=== PATIENT | male | born 1955 | race Hispanic/Latino ===

== ENCOUNTER 2018-07-23 11:45 | Emergency (ER) | payer MEDICARE ==
--- NOTE | 2018-07-23 11:51 | ED PDOC ---
Arrival/HPI - General Time Seen by Provider: 07/23/18 11:47 Historian: Family EM Caveat: Acuity of Condition - Critical Care Critical Care Minutes: 75 minutes - History of Present Illness Narrative History of Present Illness (Text): 07/23/18 11:40 62 year old male, whose past medical history includes hypertension, presents to the emergency department accompanied by family for a code stroke. As per family, patient was last seen normal at 10:30AM. Patient withright -side facial droop, right-sided weakness, and aphagia Patient's baseline mental state is awake and alert. No other complaints this morning. Code Stroke was activated upon arrival. Limited history provided. HPI and ROS limited due to acuity of condition. PMD: Dr. Dinh 07/24/18 08:05 Time/Duration: 1 hour Past Medical History - Provider Review Nursing Documentation Reviewed: Yes Family/Social History - Physician Review Nursing Documentation Reviewed: Yes Family/Social History: No Known Family HX Allergies/Home Meds Allergies/Adverse Reactions: Allergies sulfabenzamide Allergy (Verified 07/23/18 11:50) URTICARIA Home Medications: Home Meds Medication Instructions Recorded Confirmed Ciprofloxacin [Cipro] 500 mg PO BID 07/23/18 07/23/18 RX: Losartan [Cozaar] 50 mg PO DAILY 07/23/18 07/23/18 RX: amLODIPine [Norvasc] 5 mg PO DAILY 07/23/18 07/23/18 RX: hydroCHLOROthiazide 25 mg PO DAILY 07/23/18 07/23/18 [Hydrodiuril] Umeclidinium Brm/Vilanterol Tr 1 puff NEB DAILY 07/23/18 07/23/18 [Anoro Ellipta 62.5-25 Mcg INH] Review of Systems - Physician Review All systems were reviewed & negative as marked: Yes - Review of Systems Systems not reviewed;Unavailable: Acuity of Condition Neurological: Speech Changes (dysarthric ), Facial Droop, Other (right-sided weakness) Physical Exam Vital Signs Reviewed: Yes Temperature: Afebrile Blood Pressure: Hypertensive Pulse: Regular Respiratory Rate: Normal Appearance: Positive for: Well-Appearing, Non-Toxic, Comfortable Pain Distress: None - Systems Exam Head: Present: Atraumatic, Normocephalic Pupils: Present: PERRL Extroacular Muscles: Present: EOMI Conjunctiva: Present: Normal Mouth: Present: Moist Mucous Membranes Neck: Present: Normal Range of Motion Respiratory/Chest: Present: Clear to Auscultation, Good Air Exchange. No: Respiratory Distress, Accessory Muscle Use Cardiovascular: Present: Regular Rate and Rhythm, Normal S1, S2. No: Murmurs Abdomen: No: Tenderness, Distention, Peritoneal Signs Back: Present: Normal Inspection Upper Extremity: Present: Normal Inspection. No: Cyanosis, Edema Lower Extremity: Present: Normal Inspection. No: Edema Neurological: Present: Other (see nih) Skin: Present: Warm, Dry, Normal Color. No: Rashes Psychiatric: Present: Alert, Oriented x 3, Normal Insight, Normal Concentration Medical Decision Making ED Course and Treatment: 07/23/18 11:40 Impression: 62 year old male presents by family for a code stroke with left-side facial droop and aphgic that began approximately 1 hour ago. Plan: -- Labs -- CTA Head/neck Strok -- Head CT w/o contrast Code Stroke -- Labs -- Stroke Team Consult -- Labs -- EKG -- Activase 100mg Inj, IV Fluids -- Reassess and disposition Progress Notes: 07/23/18 11:44 Code Stroke called 07/23/18 11:54 Case discussed with Neurologist Dr. Fitzgerald at bedside 07/23/18 12:18 PROCEDURE: CT HEAD WITHOUT CONTRAST. Dictator : Lynne Winchester MD Report Date : 07/23/2018 12:08:22 IMPRESSION: Dense left M1 segment most compatible with acute thrombus in the left M1 segment. Small chronic infarction in the left centrum semiovale. Critical findings were discussed with the ER attending Omari Hennessy on 07/23/2018 at 12:02 p.m. for this ADDENDUM: This addendum is in regards to revision of the impression. Asymmetric increased density in the left M1 segment could represent dense MCA and thrombosis in the M1 segment however could also be related to slow flow/dehydration correlation with CT angiogram of the head and neck is recommended for definitive evaluation. [ Addendum Report Added by Lynne Winchester MD at 07/23/2018 12:13:03 ] 07/23/18 12:[address] Fitzgerald at bedside. requests transfer for thrombectomy accpetd for er to er transfer [facility] 07/23/18 12:39 EKG shows NSR at 82 BPM with PVC. Interpreted by me. PROCEDURE: CTA HEAD AND NECK WITH CONTRAST Dictator : Lynne Winchester MD Report Date : 07/23/2018 12:46:50 IMPRESSION: 1. Acute left M1 occlusion with significant attenuation of the M2 segments and distal branches. 2. 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 2. No evidence of hemodynamically significant stenosis in the right internal carotid artery by NASCET criteria. 3. Patent bilateral vertebral arteries. 4. 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 Important findings were discussed with neurologist Dr Grover Fitzgerald on 07/23/2018 at 12:30 p.m. 07/23/18 12:42 Transfer (Adult): Based upon the information available at the time of transfer, the medical benefits reasonably expected from the provision of medical treatment at [facility] outweigh the increased risk to the patient for transfer from this facility because Patient needs a thrombectomy. I have described the inherent risks and benefits of the transfer to the patient, and patient agrees to transfer. I have spoken to Dr. Alvarez who has agreed to accept transfer of the patient and provide further medical treatment at the receiving facility. At the time of transfer, copies of all medical records sent which related to the emergency condition for which the individual presented. These records include observations of signs or symptoms, preliminary clinical impression, treatment provided, results of any completed test and an informed written consent to the transfer. Chest X-ray Dictator : Lynne Winchester MD Report Date : 07/23/2018 12:47:12 IMPRESSION: No active pulmonary disease. - Critical Care Critical Care Minutes: 75 minutes - Lab Interpretations I have reviewed the lab results: Yes - RAD Interpretation Radiology Orders: 07/23/18 11:48 HEAD W/O (CODE STROKE) [CT] Stat CHEST PORTABLE [RAD] Stat 07/23/18 11:49 CTA HEAD/NECK CODE STROKE [CT] Stat Forensic Manager: Radiologist - EKG Interpretation Interpreted by ED Physician: Yes Type: 12 lead EKG NIHSS Scale ([place]) Time Performed: 11:49 - How Severe is the Stoke Baseline Level of Consciousness: 1=Drowsy LOC to Questions: 2=Neither correct LOC to commands: 2=Neither correct Best Gaze: 0=Normal Visual: 0=No visual loss Facial: 3=Complete unilateral paralysis Motor Arm - Left: 0=No drift Motor Arm - Right: 1=Drift noted before 10 sec Motor Leg - Left: 1=Drift before 5 sec Motor Leg - Right: 0=No drift Limb Ataxia: 0=Absent Sensory: 2=Severe to total loss Best Language: 3=Mute Dysarthia: 2=Severe, near unintelligible or worse Extinction & Inattention (Neglect): 0=Normal, no object Score: 17 Risk Level: Mod/Sev Stroke Risk rTPA Inclusion/Exclusion - Refusal of Treatment Patient Refused Treatment: No - Inclusion Criteria for Altepase Patient is 18 years or Older: Yes The Clinical Diagnosis of Ischemic Stroke That is Causing a Potentially Disabling Neurological Deficit: Yes Time of Onset is Well Established to be Less Than 270 Minute Before Treatment Would Begin: Yes Risk/Benefit Discussed With Patient/Family Member Present: Yes - Scribe Statement The provider has reviewed the documentation as recorded by the Dontrell Madrigal Provider Scribe Attestation: All medical record entries made by the Dontrell were at my direction and personally dictated by me. I have reviewed the chart and agree that the record accurately reflects my personal performance of the history, physical exam, medical decision making, and the department course for this patient. I have also personally directed, reviewed, and agree with the discharge instructions and disposition. Disposition/Present on Arrival - Present on Arrival Any Indicators Present on Arrival: No - Disposition Have Diagnosis and Disposition been Completed?: Yes Diagnosis: Stroke Disposition: Trans to Other Acute Care Hosp Disposition Time: 13:00 Condition: STABLE Referrals: Dawson Dinh DO [Primary Care Provider] - Follow up with primary Forms: [employer] ([place])
[2018-07-23] MEDS ORDERED: Iohexol 350 MG/100 ML VIAL ONE (11:53)
[2018-07-23 11:56] VITALS: BMI 25.9
[2018-07-23] MEDS ORDERED: Sodium Chloride 0.9% 1,000 ML IV SCH (12:00)
[2018-07-23 12:07] LABS: BASO # 0.05 K/mm3 (0.0-2.0); BASO % 0.6 % (0.0-3.0); EOS # 0.2 (0.0-0.7); EOS % 2.2 % (1.5-5.0); HEMOGLOBIN 14.7 g/dL (14.0-18.0); LYMPH % 38.2 % (22.0-35.0); MEAN CELL VOLUME 96.2 fl (80.0-105.0); MEAN CORPUSCULAR HEMOGLOBIN 32.6 pg (25.0-35.0); MEAN CORPUSCULAR HGB CONC 33.9 g/dl (31.0-37.0); MEAN PLATELET VOLUME 8.7 fl (7.0-11.0); MONO # 0.5 (0.1-0.6); MONO % 6.1 % (1.0-6.0); RBC 4.51 10^6/uL (3.5-6.1); RED CELL DISTRIBUTION WIDTH 12.2 % (11.5-14.5); WHITE BLOOD COUNT 7.7 10^3/uL (4.5-11.0)
--- NOTE | 2018-07-23 12:12 | CT ---
Date of service: 07/23/2018 PROCEDURE: CT HEAD WITHOUT CONTRAST. HISTORY: Code Stroke COMPARISON: None available. TECHNIQUE: Axial computed tomography images were obtained through the head/brain without intravenous contrast. Radiation dose: Total exam DLP = 951.36 mGy-cm. This CT exam was performed using one or more of the following dose reduction techniques: Automated exposure control, adjustment of the mA and/or kV according to patient size, and/or use of iterative reconstruction technique. FINDINGS: HEMORRHAGE: No intracranial hemorrhage. BRAIN: There are mild chronic microangiopathic changes. There is a small old infarction in the left anterior centrum semiovale. There is asymmetric increased density in the left M1 segment. There is no mass, mass effect or abnormal extra-axial fluid collection. The midline sagittal structures are normal.There are coarse atherosclerotic calcifications in the cavernous carotid arteries. VENTRICLES: There is mild age-related global parenchymal volume loss and proportionate enlargement of the ventricles and cortical sulci. CALVARIUM: There is no calvarial fracture or extracranial soft tissue swelling. PARANASAL SINUSES: Predominantly clear. MASTOID AIR CELLS: Predominantly clear. OTHER FINDINGS: None. IMPRESSION: Dense left M1 segment most compatible with acute thrombus in the left M1 segment. Small chronic infarction in the left centrum semiovale. Critical findings were discussed with the ER attending Omari Hennessy on 07/23/2018 at 12:02 p.m. for this
[2018-07-23 12:13] LABS: INR 0.88; PARTIAL THROMBOPLASTIN TIME 30.6 Seconds (26.9-38.3)
[2018-07-23 12:14] LABS: ALB/GLOB RATIO 1.6 (1.1-1.8); ALBUMIN 4.8 g/dL (3.0-4.8); ALT/SGPT 17 U/L (7-56); AST/SGOT 24 U/L (17-59); BLOOD UREA NITROGEN 21 mg/dL (7-21); CALCIUM 10.1 mg/dL (8.4-10.5); GFR NON-AFRICAN AMERICAN > 60; HDL CHOLESTEROL 47 mg/dL (29-60)
[2018-07-23 12:16] LABS: PROTHROMBIN TIME 9.9 SECONDS (9.4-12.5)
[2018-07-23 12:26] LABS: LDL CHOLESTEROL 109 mg/dL (0-129)
[2018-07-23 12:31] LABS: TROPONIN I < 0.01 ng/mL
--- NOTE | 2018-07-23 12:42 | CP.PCM.CON ---
History of Present Illness - History of Present Illness History of Present Illness: 62 yr old male who presetns with under 2 hours onset of aphasia and right sided weakness. Stroke code called and TPA given at 12:[address] Patel. MR Flaca was at home with his who is the head of ICU nursing care at [facility] and was normal, with no prior stroke. When he came in to the ER, patient was aphasic, with inability to follow commands, no naming or repetition. His right arm is 4/5, right leg 4/5, no withdrawal to painful stimuli. TPA bolus completd at 12:27. NIHSS: approximately 12. CTA head and neck completed and shows that his left ica is mostly occluded with occlusion of M1, left side. CTA head is without hemorrhage or fracture. CTA head and neck official report: Dense left M1 segment most compatible with acute thrombus in the left M1 segment. Small chronic infarction in the left centrum semiovale. Critical findings were discussed with the ER attending Omari Hennessy on 07/23/19 19 at 12:02 p.m. for this ADDENDUM: This addendum is in regards to revision of the impression. Asymmetric increased density in the left M1 segment could represent dense MCA and thrombosis in the M1 segment however could also be related to slow flow/dehydration correlation with CT angiogram of the head and neck is recommended for definitive evaluation. [ Addendum Report Added by Lynne Winchester MD at 07/23/2018 12:13:03 ] ROS; not obtainable due to inability to speak. PMH/PSH: COPD, HTN. FH/SH: , All:nkda. ON exam: Awake, alert, not oriented as patient is aphasic. Right sided facial droop. APhasic, cannot name or repeat. Motor: tone normal, strength: 4/5 right upper limb, right lower limb: 4/5 left ul and ll : appears to be 5/5 sensory: cannot determine. +2 dr ul and ll bl. Toes downgoing. No clonus. Past Patient History - Past Social History Smoking Status: Former Smoker - CARDIAC Hx Hypertension: Yes - PULMONARY Hx Chronic Obstructive Pulmonary Disease (COPD): Yes - PSYCHIATRIC Hx Substance Use: No - SURGICAL HISTORY Hx Surgeries: No Meds Allergies/Adverse Reactions: Allergies Allergy/AdvReac Type Severity Reaction Status Date / Time sulfabenzamide Allergy URTICARIA Verified 07/23/18 11:50 - Medications Medications: Current Medications Sodium Chloride (Sodium Chloride 0.9%) 1,000 mls @ 100 mls/hr IV .Q10H MARIA DEL CARMEN Results - Vital Signs Recent Vital Signs: Last Vital Signs Temp 98.1 F 07/23/18 11:47 Pulse 82 07/23/18 11:47 Resp 18 07/23/18 11:47 BP 167/85 H 07/23/18 11:47 Pulse Ox 98 07/23/18 11:47 - Labs Result Diagrams: 07/23/18 11:45 07/23/18 11:45 Labs: Laboratory Results - last 24 hr 07/23/18 07/23/18 07/23/18 11:45 11:45 11:45 WBC 7.7 RBC 4.51 Hgb 14.7 Hct 43.4 MCV 96.2 MCH 32.6 MCHC 33.9 RDW 12.2 Plt Count 285 MPV 8.7 Neut % (Auto) 52.9 Lymph % (Auto) 38.2 H [place] % (Auto) 6.1 H Eos % (Auto) 2.2 Baso % (Auto) 0.6 Lymph # (Auto) 3.0 [place] # (Auto) 0.5 Eos # (Auto) 0.2 Baso # (Auto) 0.05 Absolute Neuts (auto) 4.08 PT 9.9 INR 0.88 APTT 30.6 Sodium 137 Potassium 4.3 Chloride 97 L Carbon Dioxide 31 Anion Gap 13 BUN 21 Creatinine 0.7 L Est GFR ( Amer) > 60 Est GFR (Non-Af Amer) > 60 Random Glucose 118 H Calcium 10.1 Total Bilirubin 0.3 AST 24 ALT 17 Alkaline Phosphatase 69 Total Protein 7.9 Albumin 4.8 Globulin 3.1 Albumin/Globulin Ratio 1.6 Triglycerides 221 H Cholesterol 224 H HDL Cholesterol 47 Assessment & Plan - Assessment and Plan (Free Text) Assessment: CTA head: also shows basilar tip aneurysm, chronic. A/P: 62 yr old male with new LT MCA stroke, M1 occlusion, ischemic and most likely embolic. In addition, the patient has a complete occlusion of the left ica. HE has received TPA and is now stable, wtih bp of 120/70, and no imp rovement at 12:50. Discussed with the endovascular team and we will transfer to [facility] epting physician Mina Clark, and left M1 thrombectomy to be done as soon as possible. Plan; 1. Maintain normotensive bp 2. admit to ICU, s/p thrombectomy 3. statin 4. Repeat Ct head in 24 hours. 5. Normal saline 100ccs per hour. 6. neuro checks q hour. 7. No anticoagulants for 36 hours. 8. ECHO, PTST OT Thank you Dr. Grover Fitzgerald MD, DPN [facility] Neurology
--- NOTE | 2018-07-23 12:50 | CT ---
Date of service: 07/23/2018 PROCEDURE: CTA HEAD AND NECK WITH CONTRAST HISTORY: code stroke COMPARISON: None available. TECHNIQUE: Initial noncontrast head CT was performed. Subsequently, CT angiogram of the head and neck were performed after the intravenous administration of 80 mL of Omnipaque 350. Contiguous 1.5mm thick images were obtained in the axial plane of the neck. 2-D coronal and sagittal MPR images were obtained. Imaging postprocessing was performed with 3-D images also obtained. A delayed contrast head CT was also obtained. This CT exam was performed using one or more of the following dose reduction techniques: Automated exposure control, adjustment of the mA and/or kV according to patient size, and/or use of iterative reconstruction technique. Contrast dose: 100 mL Omnipaque 350 Radiation dose: Total exam DLP = 659.76 mGy-cm. FINDINGS: HEAD: There are coarse atherosclerotic calcifications in the cavernous carotid arteries. Right: The intracranial internal carotid artery, and anterior and middle cerebral arteries are widely patent. Left: There is absent flow in the intracranial internal carotid artery including the petrous, cavernous and supraclinoid segments. There is asymmetric diminished flow in the proximal left M1 segment and significant attenuation of the distal left M1 segment, M2 segment and distal branches. There is normal flow in the A2 segment. The left A1 segment is hypoplastic, an anatomic variant. Posterior circulation: The visualized intracranial vertebral arteries, basilar artery and posterior cerebral arteries are widely patent. 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 NECK: There is a three vessel aortic arch. There is no stenosis at the origins of the great vessels at the level of the aortic arch. The There are dense calcified atherosclerotic plaques in both common carotid arteries and proximal internal carotid arteries. Right Carotid: On the right, the common carotid, internal carotid and external carotid arteries are widely patent. There is 50% -70% stenosis in the proximal internal carotid artery. No evidence for hemodynamically significant stenosis by NASCET criteria. Left Carotid: On the left, the common carotid and external carotid arteries are widely patent. There is complete chronic occlusion of the left internal carotid artery at its origin with no distal flow in the cervical segment. The vertebral arteries are widely patent. There is mild paraseptal emphysema in the lung apices. There are scattered calcified granulomas in the visualized lungs. IMPRESSION: 1. Acute left M1 occlusion with significant attenuation of the M2 segments and distal branches. 2. 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 2. No evidence of hemodynamically significant stenosis in the right internal carotid artery by NASCET criteria. 3. Patent bilateral vertebral arteries. 4. 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 Important findings were discussed with neurologist Dr Grover Fitzgerald on 07/23/2018 at 12:30 p.m.
--- NOTE | 2018-07-23 12:51 | RAD ---
Date of service: 07/23/2018 HISTORY: Code Stroke COMPARISON: No prior. FINDINGS: LUNGS: The lungs are well inflated and clear. PLEURA: No pleural effusions or pneumothorax. CARDIOVASCULAR: The heart is normal in size. No aortic atherosclerotic calcifications present. OSSEOUS STRUCTURES: Within normal limits for the patient's age. VISUALIZED UPPER ABDOMEN: Normal. OTHER FINDINGS: None. IMPRESSION: No active pulmonary disease.
[2018-07-23 13:09] VITALS: RESP 18; O2SAT 97
[2018-07-23 14:39] VITALS: BP 141/79; PULSE 107; TEMP 98.2
--- NOTE | 2018-07-23 20:36 | CARD ---
APPROVED REPORT Date of service: 07/23/2018 EKG Measurement Heart [id number] <Conclusion> Sinus rhythm with occasional premature ventricular complexes Incomplete right bundle branch block Borderline ECG
== END 2018-07-23 13:30 | disposition short-term general hospital (02) ==
LOC: ED 11:45
DX: I63.9 Cerebral infarction, unspecified (principal); J44.9 Chronic obstructive pulmonary disease, unspecified; I10 Essential (primary) hypertension; Z87.891 Personal history of nicotine dependence
CPT/HCPCS: 37195; 70450; 70496; 70498; 71045; 80053; 80061; 83036; 84484; 85025; 85610; 85730; 86850; 86900; 93005; 96360; 99291; J2997; Q9967